=== PATIENT | female | born 2000 | race African-American/Black ===

== ENCOUNTER 2020-10-07 02:37 | Emergency (ER) | payer OTHER ==
[~2020-10-07] VITALS: Ht 167.6 cm; Wt 74.5 kg
[2020-10-07] MEDS ORDERED: HALO5TAB2 PO (02:46)
[2020-10-07] MEDS ORDERED: LITH300C3 PO (02:46)
[2020-10-07] MEDS ORDERED: LORA-1000 PO (02:46)
[2020-10-07 05:05] VITALS: BP 128/72
== END 2020-10-07 05:42 | disposition home or self-care (01) ==
LOC: EDUNIT# 02:37 → EMS 02:38
DX: F31.9 Bipolar disorder, unspecified (principal); Z53.21 Procedure and treatment not carried out due to patient leaving prior to being seen by health care provider
CPT/HCPCS: 99281; Z7502